=== PATIENT | female | born 1985 | race Caucasian/White ===

== ENCOUNTER 2017-05-31 20:07 | Emergency (ER) | payer BC, OTHER ==
[2017-05-31 20:42] VITALS: BP 118/75; PULSE 75; RESP 16; TEMP 98.1
[2017-05-31] MEDS ORDERED: traMADol 50 MG STARTER PACK 3 TAB BTL PO STA (22:00)
--- NOTE | 2017-05-31 22:00 | ED ---
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 Patient reports that the pain just seemed to start over the past 2 days. She reports that she saw her primary care provider and they told her that she did not need to have it removed. She reports that the pain has became worse over the past 48 hours. She reports it seems also increased in size. She denies any fever or chills, difficulty with urination or bowel movements. She reports that the pain is worse with certain movements. She reports no abdominal pain, nausea vomiting or any other associated symptoms. - Related Data Previous Rx's Medication Instructions Recorded traMADol HCl [Ultram] 50 mg PO Q6H PRN #12 tab 05/31/17 Allergies Allergy/AdvReac Type Severity Reaction Status Date / Time latex Allergy Rash/Hives Verified 05/31/17 20:42 Review of Systems ROS Statement: Those systems with pertinent positive or pertinent negative responses have been documented in the HPI. ROS Other: All systems not noted in ROS Statement are negative. Past Medical History Past Medical History: No Reported History History of Any Multi-Drug Resistant Organisms: None Reported Past Surgical History: Cholecystectomy Past Anesthesia/Blood Transfusion Reactions: No Reported Reaction Past Psychological History: No Psychological Hx Reported Smoking Status: Never smoker Past Alcohol Use History: Occasional Past Drug Use History: None Reported - Past Family History Mother Additional Family Medical History / Comment(s): cervical cancer Father Family Medical History: AFIB General Exam - General Exam Comments Initial Comments: 31-year-old female. No acute distress. Limitations: no limitations General appearance: alert, in no apparent distress Head exam: Present: atraumatic, normocephalic, normal inspection Eye exam: Present: normal appearance, PERRL, EOMI. Absent: scleral icterus, conjunctival injection, periorbital swelling ENT exam: Present: normal exam, mucous membranes moist Neck exam: Present: normal inspection. Absent: tenderness, meningismus, lymphadenopathy Respiratory exam: Present: normal lung sounds bilaterally. Absent: respiratory distress, wheezes, rales, rhonchi, stridor Cardiovascular Exam: Present: regular rate, normal rhythm, normal heart sounds. Absent: systolic murmur, diastolic murmur, rubs, gallop, clicks GI/Abdominal exam: Present: soft, normal bowel sounds. Absent: distended, tenderness, guarding, rebound, rigid Extremities exam: Present: normal inspection, full ROM, normal capillary refill. Absent: tenderness, pedal edema, joint swelling, calf tenderness Back exam: Present: normal inspection, tenderness (Patient does have a for similar by 3 cm area of firmness consistent with a lipoma over her back. She reports it's been similar to this as previously but seems to be somewhat increased over the past 2 days.) Neurological exam: Present: alert, oriented X3, CN II-XII intact Psychiatric exam: Present: normal affect, normal mood Skin exam: Present: warm, dry, intact, normal color. 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 Patient reports that the pain just seemed to start over the past 2 days. She reports that she saw her primary care provider and they told her that she did not need to have it removed. She reports that the pain has became worse over the past 48 hours. She reports it seems also increased in size. She denies any fever or chills, difficulty with urination or bowel movements. Patient be discharged with pain medication and a surgical referral. Discussed applying ice compress over the area. Discussed monitoring for any fever or chills or erythema over the site. Disposition Clinical Impression: Lipoma, Back pain Disposition: HOME SELF-CARE Condition: Good Prescriptions: traMADol HCl [Ultram] 50 mg PO Q6H PRN #12 tab PRN Reason: Pain Referrals: Florentino Rosario MD [Primary Care Provider] - 1-2 days Syl Webster MD [STAFF PHYSICIAN] - 1-2 days Time of Disposition: 21:59
== END 2017-05-31 22:28 | disposition home or self-care (01) ==
LOC: EC 20:07
DX: D17.1 Benign lipomatous neoplasm of skin and subcutaneous tissue of trunk (principal); M54.9 Dorsalgia, unspecified; Z90.49 Acquired absence of other specified parts of digestive tract; Z91.040 Latex allergy status
CPT/HCPCS: 99283

== ENCOUNTER 2021-08-15 09:21 | Emergency (ER) | payer OTHER ==
[2021-08-15 09:37] VITALS: RESP 18; TEMP 98.3
--- NOTE | 2021-08-15 10:33 | ED ---
URI HPI - General Chief Complaint: Upper Respiratory Infection Stated Complaint: Cough Time Seen by Provider: 08/15/21 09:53 Source: patient, RN notes reviewed Mode of arrival: ambulatory Limitations: no limitations - History of Present Illness Initial Comments: Patient is a 36-year-old female that presents to the emergency department complaining of a cough and chest congestion for the past 5 days. She notes that she gets tested for Covid 2 times weekly at her work. She gets test and mother is has not been negative for the last several weeks. Patient notes that she does have is no ALLERGIES and does take ALLERGY medication. She notes that she's been taking TheraFlu for the cough and chest congestion but is only made her tired. She notes that she does have some phlegm/clear mucus come up when she coughs. She denied any other issues or complaints. She was otherwise well-appearing. She denied any chest pain shortness of breath headache nausea vomiting diarrhea constipation fever fatigue chills. - Related Data Home Medications Medication Instructions Recorded Confirmed Cetirizine HCl [Zyrtec] 10 mg PO HS 08/15/21 08/15/21 Allergies Allergy/AdvReac Type Severity Reaction Status Date / Time latex Allergy Rash/Hives Verified 08/15/21 10:59 Review of Systems ROS Statement: Those systems with pertinent positive or pertinent negative responses have been documented in the HPI. ROS Other: All systems not noted in ROS Statement are negative. Past Medical History Additional Past Medical History / Comment(s): allergies History of Any Multi-Drug Resistant Organisms: None Reported Past Surgical History: Cholecystectomy Past Psychological History: No Psychological Hx Reported Smoking Status: Never smoker Past Alcohol Use History: Occasional Past Drug Use History: None Reported General Exam Limitations: no limitations General appearance: alert, in no apparent distress, obese Head exam: Present: atraumatic, normocephalic, normal inspection Eye exam: Present: normal appearance, PERRL, EOMI. Absent: scleral icterus, conjunctival injection, periorbital swelling ENT exam: Present: normal exam, mucous membranes moist Neck exam: Present: normal inspection Respiratory exam: Present: normal lung sounds bilaterally. Absent: respiratory distress, wheezes, rales, rhonchi, stridor Cardiovascular Exam: Present: regular rate, normal rhythm, normal heart sounds. Absent: systolic murmur, diastolic murmur, rubs, gallop, clicks Extremities exam: Present: normal inspection, full ROM, normal capillary refill. Absent: tenderness, pedal edema, joint swelling, calf tenderness Neurological exam: Present: alert, oriented X3 Psychiatric exam: Present: normal affect, normal mood Skin exam: Present: warm, dry, intact, normal color. Absent: rash Course Vital Signs 08/15/21 08/15/21 09:35 11:15 Temperature 98.3 F Pulse Rate 78 Respiratory 18 18 Rate Blood Pressure 113/74 O2 Sat by Pulse 97 Oximetry Medical Decision Making - Medical Decision Making 36-year-old female with a five-day history of cough and chest congestion with minor sputum production. Chest x-ray, Covid test ordered. Chest x-ray negative. Covid test negative. Patient most likely experiencing postnasal drip with upper respiratory tract symptoms involving cough. Case discussed with Dr. Larsen, patient can discharge home. - Lab Data Lab Results 08/15/21 Range/Units 10:20 Coronavirus (PCR) Not Detected (Not Detectd) - Radiology Data Radiology results: report reviewed, image reviewed Chest x-ray: No acute process. Disposition Clinical Impression: Postnasal drip, Pharyngitis, Cough Disposition: HOME SELF-CARE Condition: Stable Instructions (If sedation given, give patient instructions): Postnasal Drip (DC) Additional Instructions: Please return to the Emergency Department if symptoms worsen or any other concerns. Can use Flonase to help postnasal drip symptoms. Continue to use congestions as needed. Hollow up with primary care 1-2 days. Is patient prescribed a controlled substance at d/c from ED?: No Referrals: None,Stated [Primary Care Provider] - 1-2 days Time of Disposition: 11:39
--- NOTE | 2021-08-15 10:52 | XR ---
EXAMINATION TYPE: XR chest 2V DATE OF EXAM: 08/15/2021 COMPARISON: 08/22/2014 TECHNIQUE: PA and lateral views submitted. HISTORY: Cough FINDINGS: The lungs are clear and there is no pneumothorax, pleural effusion, or focal pneumonia. Heart size normal. No overt failure. IMPRESSION: 1. No acute process.
[2021-08-15 11:52] VITALS: BP 125/71; PULSE 68
== END 2021-08-15 11:47 | disposition home or self-care (01) ==
LOC: MERGE 09:21 → EC 09:21
DX: J02.9 Acute pharyngitis, unspecified (principal); R05 Cough; R09.82 Postnasal drip; E66.9 Obesity, unspecified; Z68.32 Body mass index [BMI] 32.0-32.9, adult
CPT/HCPCS: 71046; 87635; 99283

== ENCOUNTER 2021-11-19 12:27 | Emergency (ER) | payer OTHER ==
--- NOTE | 2021-11-19 13:44 | ED ---
URI HPI - General Stated Complaint: covid symptoms Time Seen by Provider: 11/19/21 13:32 Source: patient, RN notes reviewed Mode of arrival: ambulatory Limitations: no limitations - History of Present Illness Initial Comments: This a 36-year-old female presents emergency Department with chief complaint of cough congestion, fevers or chills bodies. Patient states symptoms started last couple days. Patient's family is sick with similar symptoms. Patient's had prior COVID-19 but feels very similar. Patient has a mostly dry cough. Patient does admit that she has some diarrhea, fevers chills bodies. Patient's cough. - Related Data Home Medications Medication Instructions Recorded Confirmed Cetirizine HCl [Zyrtec] 10 mg PO HS 08/15/21 08/15/21 Previous Rx's Medication Instructions Recorded traMADol HCl [Ultram] 50 mg PO Q6H PRN #12 tab 05/31/17 Allergies Allergy/AdvReac Type Severity Reaction Status Date / Time latex Allergy Rash/Hives Verified 11/19/21 13:43 Review of Systems ROS Statement: Those systems with pertinent positive or pertinent negative responses have been documented in the HPI. ROS Other: All systems not noted in ROS Statement are negative. Past Medical History Past Medical History: No Reported History Additional Past Medical History / Comment(s): allergies History of Any Multi-Drug Resistant Organisms: None Reported Past Surgical History: Cholecystectomy Past Anesthesia/Blood Transfusion Reactions: No Reported Reaction Past Psychological History: No Psychological Hx Reported Smoking Status: Never smoker Past Alcohol Use History: Occasional Past Drug Use History: None Reported - Past Family History Mother Additional Family Medical History / Comment(s): cervical cancer Father Family Medical History: AFIB General Exam General appearance: alert, in no apparent distress Head exam: Present: atraumatic, normocephalic, normal inspection Eye exam: Present: normal appearance, PERRL, EOMI. Absent: scleral icterus, conjunctival injection, periorbital swelling ENT exam: Present: normal exam, normal oropharynx, mucous membranes moist Neck exam: Present: normal inspection, full ROM. Absent: tenderness, meningismus, lymphadenopathy Respiratory exam: Present: normal lung sounds bilaterally. Absent: respiratory distress, wheezes, rales, rhonchi, stridor Cardiovascular Exam: Present: regular rate, normal rhythm, normal heart sounds. Absent: systolic murmur, diastolic murmur, rubs, gallop, clicks Course Vital Signs 11/19/21 13:43 Temperature 98.4 F Pulse Rate 93 Respiratory 20 Rate Blood Pressure 115/81 O2 Sat by Pulse 100 Oximetry Medical Decision Making - Medical Decision Making Positive covid 19. Patient discharged in stable condition - Lab Data Lab Results 11/19/21 Range/Units 13:46 Coronavirus (PCR) Detected A (Not Detectd) Disposition Clinical Impression: COVID-19 Disposition: HOME SELF-CARE Condition: Stable Instructions (If sedation given, give patient instructions): Coronavirus Disease 2019 (COVID-19) Additional Instructions: Please return to the Emergency Department if symptoms worsen or any other concerns. Is patient prescribed a controlled substance at d/c from ED?: No Referrals: None,Stated [Primary Care Provider] - 1-2 days Time of Disposition: 15:08
[2021-11-19 15:33] VITALS: BP 121/86; PULSE 88; RESP 18; TEMP 98.7
== END 2021-11-19 15:30 | disposition home or self-care (01) ==
LOC: EC 12:27
DX: U07.1 COVID-19 (principal)
CPT/HCPCS: 87635; 99283

== ENCOUNTER 2022-10-30 05:37 | Emergency (ER) | payer BC, OTHER ==
[2022-10-30 05:46] VITALS: TEMP 97.4
--- NOTE | 2022-10-30 06:10 | ED ---
General Adult HPI - General Source: patient Mode of arrival: ambulatory Limitations: no limitations <Wali Mortensen - Last Filed: 10/30/22 06:05> <Steve Starks - Last Filed: 10/30/22 08:51> - General Chief complaint: Skin/Abscess/Foreign Body Stated complaint: RT breast lump Time Seen by Provider: 10/30/22 05:52 - History of Present Illness Initial comments: This is a 37-year-old female with no past medical history presents emergency department for right breast pain and tenderness. The patient stated that she noted a lump in her breast yesterday and had tenderness over this area and the right breast. The patient denied any trauma to the right breast. The patient stated that she has not had any issues like this in the past and stated that is a larger area in the right breast just behind the areola that was causing her significant pain. The patient stated that she had some mild discomfort and "fee ling sick with body aches and chills of the last several months." The patient denied any other acute pain or complaints at this time. The patient denied any active fevers and chills. (Wali Mortensen) - Related Data Home Medications Medication Instructions Recorded Confirmed Cetirizine HCl [Zyrtec] 10 mg PO HS 08/15/21 08/15/21 Previous Rx's Medication Instructions Recorded traMADol HCl [Ultram] 50 mg PO Q6H PRN #12 tab 05/31/17 clindamycin HCL 300 mg PO Q6H 5 Days #15 cap 10/30/22 Allergies Allergy/AdvReac Type Severity Reaction Status Date / Time latex Allergy Rash/Hives Verified 10/30/22 05:43 Review of Systems ROS Other: All systems not noted in ROS Statement are negative. <Wali Mortensen - Last Filed: 10/30/22 06:05> ROS Other: All systems not noted in ROS Statement are negative. <Steve Starks - Last Filed: 10/30/22 08:51> ROS Statement: Those systems with pertinent positive or pertinent negative responses have been documented in the HPI. Past Medical History Past Medical History: No Reported History Additional Past Medical History / Comment(s): allergies History of Any Multi-Drug Resistant Organisms: None Reported Past Surgical History: Cholecystectomy Past Anesthesia/Blood Transfusion Reactions: No Reported Reaction Past Psychological History: No Psychological Hx Reported Smoking Status: Vaper Past Alcohol Use History: Occasional Past Drug Use History: None Reported - Past Family History Mother Additional Family Medical History / Comment(s): cervical cancer Father Family Medical History: AFIB <Wali Mortensen - Last Filed: 10/30/22 06:05> General Exam Limitations: no limitations General appearance: alert, in no apparent distress Head exam: Present: atraumatic, normocephalic, normal inspection Eye exam: Present: normal appearance, PERRL Pupils: Present: normal accommodation ENT exam: Present: normal exam, normal oropharynx, mucous membranes moist Neck exam: Present: normal inspection, full ROM Respiratory exam: Present: normal lung sounds bilaterally Cardiovascular Exam: Present: regular rate, normal rhythm, normal heart sounds GI/Abdominal exam: Present: soft, normal bowel sounds Extremities exam: Present: normal inspection, full ROM Back exam: Present: normal inspection, full ROM Neurological exam: Present: alert, oriented X3, CN II-XII intact Psychiatric exam: Present: normal affect, normal mood Skin exam: Present: warm, dry, other (Bottom Finisher was present for exam of the breast. Large area of swelling and tenderness to palpation about 3 x 3 cm over the center of the right breast that was mobile however tender with any motion.) <Wali Mortensen - Last Filed: 10/30/22 06:05> Course Vital Signs 10/30/22 05:43 Temperature 97.4 F L Pulse Rate 101 H Respiratory 16 Rate Blood Pressure 118/66 O2 Sat by Pulse 98 Oximetry Medical Decision Making - Lab Data Result diagrams: 10/30/22 06:17 10/30/22 06:17 <Steve Starks - Last Filed: 10/30/22 08:51> - Medical Decision Making Patient care sent out to me by previous shift physician, Dr. Wei Mortensen. Briefly, patient 37-year-old female with clinical presentation consistent with breast abscess. Plan sign out was to follow-up with pending ultrasound. Patient was evaluated bedside. She is well-appearing. She does have a large palpable mass felt in the 7:00 portion of the right breast. Ultrasound was reviewed showing small area of hypoechoic area which may be a small mildly c omplex cyst. Externally clinical presentation does not suggest infection given that there is no overlying erythema making cyst more likely diagnosis. nonetheless patient will be covered for breast abscess. Patient denies . Case discussed with on-call surgeon, Dr. Marte who recommends that patient be started on oral antibiotics discharged with referral to breast specialist. Patient has no medicine ALLERGIES. Patient discharged with referral to Dr. Munson (Steve Starks) - Lab Data Lab Results 10/30/22 10/30/22 Range/Units 06:17 06:17 WBC 12.6 H (3.8-10.6) k/uL RBC 4.33 (3.80-5.40) m/uL Hgb 12.5 (11.4-16.0) gm/dL Hct 38.2 (34.0-46.0) % MCV 88.2 (80.0-100.0) fL MCH 29.0 (25.0-35.0) pg MCHC 32.8 (31.0-37.0) g/dL RDW 12.1 (11.5-15.5) % Plt Count 189 (150-450) k/uL MPV 9.3 Neutrophils % 75 % Lymphocytes % 14 % Monocytes % 6 % Eosinophils % 4 % Basophils % 0 % Neutrophils # 9.4 H (1.3-7.7) k/uL Lymphocytes # 1.8 (1.0-4.8) k/uL Monocytes # 0.8 (0-1.0) k/uL Eosinophils # 0.5 (0-0.7) k/uL Basophils # 0.0 (0-0.2) k/uL Sodium 138 (137-145) mmol/L Potassium 3.7 (3.5-5.1) mmol/L Chloride 109 H (98-107) mmol/L Carbon Dioxide 24 (22-30) mmol/L Anion Gap 5 mmol/L BUN 10 (7-17) mg/dL Creatinine 0.59 (0.52-1.04) mg/dL Est GFR (CKD-EPI)AfAm >90 (>60 ml/min/1.73 sqM) Est GFR (CKD-EPI)NonAf >90 (>60 ml/min/1.73 sqM) Glucose 94 (74-99) mg/dL Calcium 8.3 L (8.4-10.2) mg/dL Magnesium 1.6 (1.6-2.3) mg/dL Total Bilirubin 0.4 (0.2-1.3) mg/dL AST 18 (14-36) U/L ALT 15 (4-34) U/L Alkaline Phosphatase 68 (38-126) U/L Total Protein 6.3 (6.3-8.2) g/dL Albumin 3.6 (3.5-5.0) g/dL Disposition <Wali Mortensen - Last Filed: 10/30/22 06:05> Is patient prescribed a controlled substance at d/c from ED?: No Time of Disposition: 08:50 <Steve Starks - Last Filed: 10/30/22 08:51> Clinical Impression: Breast mass Disposition: HOME SELF-CARE Condition: Fair Instructions (If sedation given, give patient instructions): Breast Mass (ED) Prescriptions: clindamycin HCL 300 mg PO Q6H 5 Days #15 cap Referrals: Sneha Munson MD [STAFF PHYSICIAN] - 1-2 days
[2022-10-30 06:28] LABS: Basophils % (A) 0 %; Eosinophils % (A) 4 %; HCT 38.2 % (34.0-46.0); HGB 12.5 gm/dL (11.4-16.0); Lymphocytes % (A) 14 %; MCHC 32.8 g/dL (31.0-37.0); MCV 88.2 fL (80.0-100.0); Mean Platelet Volume 9.3; Monocytes % (A) 6 %; Neutrophils # (A) 9.4 k/uL (1.3-7.7); Neutrophils % (A) 75 %; Platelet Count 189 k/uL (150-450); RBC 4.33 m/uL (3.80-5.40); RDW 12.1 % (11.5-15.5); WBC 12.6 k/uL (3.8-10.6)
[2022-10-30 06:29] LABS: Eosinophils # (A) 0.5 k/uL (0-0.7); Lymphocytes # (A) 1.8 k/uL (1.0-4.8); Monocytes # (A) 0.8 k/uL (0-1.0)
[2022-10-30 06:45] LABS: ALT 15 U/L (4-34); AST 18 U/L (14-36); African American GFR (CKD) >90 (>60 ml/min/1.73 sqM); Albumin 3.6 g/dL (3.5-5.0); Alkaline Phosphatase 68 U/L (38-126); Anion Gap 5 mmol/L; Blood Urea Nitrogen 10 mg/dL (7-17); Calcium 8.3 mg/dL (8.4-10.2); Carbon Dioxide 24 mmol/L (22-30); Chloride 109 mmol/L (98-107); Glucose 94 mg/dL (74-99); Magnesium 1.6 mg/dL (1.6-2.3); Non-African American GFR(CKD) >90 (>60 ml/min/1.73 sqM); Potassium 3.7 mmol/L (3.5-5.1); Sodium 138 mmol/L (137-145); Total Bilirubin 0.4 mg/dL (0.2-1.3); Total Protein 6.3 g/dL (6.3-8.2)
--- NOTE | 2022-10-30 08:22 | USB ---
Reason for Exam: Clinical finding. Risk Values: Janell 5 year model risk: 0.2%. NCI Lifetime model risk: 6.9%. Technique: Method: Whole Breast Handheld. Findings: The whole breast of the right breast, the axilla of the right breast and the retroareolar of the right breast were scanned. There is a 0.7 x 0.7 x 0.4 cm hypoechoic area with good through-transmission and posterior wall enhancement may be a small mildly complex cyst. Short-term follow-up is recommended. Given the patient's symptoms, baseline screening mammogram performed at this age. Overall Assessment: Incomplete: need additional imaging evaluation, BI-RAD 0 Management: Screening Mammogram of both breasts. A clinical breast exam by your physician is recommended on an annual basis and results should be correlated with mammographic findings. This exam should not preclude additional follow-up of suspicious palpable abnormalities. Results were given to the patient verbally at the time of exam. Electronically signed and approved by: Kee Swartz D.O. Radiologis
[2022-10-30 09:13] VITALS: BP 111/70; PULSE 71; RESP 17
== END 2022-10-30 09:13 | disposition home or self-care (01) ==
LOC: EC 05:37
DX: N63.10 Unspecified lump in the right breast, unspecified quadrant (principal); F17.290 Nicotine dependence, other tobacco product, uncomplicated; Z91.040 Latex allergy status
CPT/HCPCS: 36415; 80053; 83735; 85025; 99283

== ENCOUNTER → 2022-12-02 | Outpatient (CLI) | payer BC ==
--- NOTE | 2022-12-03 20:28 | MM ---
Reason for Exam: Screening (asymptomatic). Baseline mammogram. Patient History: Menarche at age 14. First Full-Term at age 17. Patient has history of breast feeding. Paternal aunt had breast cancer. Last menstrual period: 11/03/2022 Risk Values: Janell 5 year model risk: 0.2%. NCI Lifetime model risk: 7.5%. Prior Study Comparison: Patient's first Mammogram. Tissue Density: The breast tissue is heterogeneously dense. This may lower the sensitivity of mammography. Findings: Analyzed By CAD. No significant mass, suspicious microcalcification, or other discrete abnormality is seen. Areas of asymmetric density do not persist on 3-D images. Overall Assessment: Benign, BI-RAD 2 Management: Screening Mammogram of both breasts at age 42. 1. Patient should continue monthly self breast exams. 2. A clinical breast exam by your physician is recommended on an annual basis. 3. This exam should not preclude additional follow-up of suspicious palpable abnormalities. Electronically signed and approved by: Smiley Hall M.D. Radiologist
== END | disposition home or self-care (01) ==
LOC: RADMAMWWP 13:40
PROVIDERS: ATTEND Surgery
DX: Z12.31 Encounter for screening mammogram for malignant neoplasm of breast (principal); Z80.3 Family history of malignant neoplasm of breast
CPT/HCPCS: 77063; 77067

== ENCOUNTER → 2022-12-06 | Outpatient (CLI) | payer BC ==
[2022-12-06 10:56] VITALS: BP 113/75; PULSE 76; RESP 16; TEMP 98
--- NOTE | 2022-12-06 11:13 | P.GSHP ---
History of Present Illness H&P Date: 12/06/22 Chief Complaint: Right breast pain and tenderness Zoë is a 37-year-old white female seen in consultation regarding right breast pain and tenderness. She was seen in the emergency department at [facility] and [id number]. At that time she had noted a lump in her right breast and had tenderness over that area. There was concern that this represented a cyst versus an abscess she was started on an antibiotic. An ultrasound was performed on the same date which revealed a 0.7 x 0.7 cm hypoechoic area with good through transmission and posterior wall enhancement may be a small mildly complex cyst. The feeling was that this was incomplete assessment and screening mammogram of both breasts was recommended. The pain and tenderness resolved. She did not have any fever or chills. Did have a bilateral mammogram earlier this week. This was done on . This was benign BIRADS 2. At this time she is not complaining of any lumps masses or nodules in either breast. She is not complaining of any nipple discharge or skin changes. Caffeine: pop and monsters coffee all day nicotine: none; stopped 8 months ago, used to smoke 1 PP/week/vapes chocolate: none BCP: as a teen; not now no hormones Family History: Paternal grandmother: Breast cancer Maternal grandmother: Brain cancer, lung cancer Paternal aunt: cancer ? 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 Gallbladder Medical history: Negative Social history: Nicotine: Stopped 8 months ago/ vapes Alcohol: Negative Drugs: none - Constitutional Constitutional: Denies chills, Denies fever - EENT Comment: vertigo since 2012 Eyes: denies blurred vision, denies pain Ears: deny: decreased hearing, tinnitus Ears, nose, mouth and throat: Reports vertigo - Breasts Breasts: bilateral: as per HPI - Cardiovascular Cardiovascular: Denies chest pain, Denies shortness of breath - Respiratory Respiratory: Reports cough - Gastrointestinal Gastrointestinal: Denies abdominal pain, Denies diarrhea, Denies nausea, Denies vomiting - Genitourinary (Female) Genitourinary: Denies dysuria, Denies hematuria - Menstruation Menstruation: Reports period normal - Musculoskeletal Musculoskeletal: Denies myalgias - Integumentary Integumentary: Denies pruritus, Denies rash - Neurological Neurological: Denies numbness, Denies weakness - Psychiatric Psychiatric: Denies anxiety, Denies depression - Endocrine Endocrine: Denies fatigue, Denies weight change - Hematologic/Lymphatic Comment: none - Allergic/Immunologic Allergic/Immunologic: Reports seasonal allergies Past Medical History Past Medical History: No Reported History Additional Past Medical History / Comment(s): allergies History of Any Multi-Drug Resistant Organisms: None Reported Past Surgical History: Cholecystectomy Past Anesthesia/Blood Transfusion Reactions: No Reported Reaction Past Psychological History: No Psychological Hx Reported Smoking Status: Vaper Past Alcohol Use History: Occasional Past Drug Use History: None Reported - Past Family History Mother Additional Family Medical History / Comment(s): cervical cancer Father Family Medical History: AFIB Medications and Allergies Home Medications Medication Instructions Recorded Confirmed Type traMADol HCl [Ultram] 50 mg PO Q6H PRN #12 tab 05/31/17 Rx Cetirizine HCl [Zyrtec] 10 mg PO HS 08/15/21 08/15/21 History clindamycin HCL 300 mg PO Q6H 5 Days #15 cap 10/30/22 Rx Allergies Allergy/AdvReac Type Severity Reaction Status Date / Time latex Allergy Rash/Hives Verified 10/30/22 05:43 Surgical - Exam - General no distress - Eyes normal ocular movement - Neck trachea midline - Respiratory normal respiratory effort, clear to auscultation - Cardiovascular Rhythm: regular Heart Sounds: normal: S1, S2 - Abdomen Abdomen: soft, non tender, no guarding, no rigid, no rebound - Integumentary normal turgor - Musculoskeletal normal gait - Psychiatric oriented to time, oriented to person, oriented to place, memory intact Breast exam: BRA: 38DD Inspection: Bilateral grade 2 ptosis Palpation: Right breast: Multi-positional exam fibrocystic changes no dominant masses or nodules of concern, the area of prior tenderness and fullness has resolved Right axilla: No adenopathy of concern Left breast: Multiple positional exam fibrocystic changes no dominant masses or nodules of concern Left axilla: No adenopathy of concern Results Mammogram and ultrasound results reviewed Assessment and Plan Assessment: Impression: Probable infectious process in October which is subsequently resolved. At this time patient is not complaining of any changes in her breast is not complaining of any lumps pain or discomfort. Physical exam no dominant masses or nodules of concern Recent mammogram no lesions of concern BIRADS 2 Plan: Bilateral mammogram in 1 year with physician exam at that time Patient follow-up immediately any questions or concerns
== END ==
LOC: WWCWWP 10:46
PROVIDERS: ATTEND Surgery
DX: Z85.3 Personal history of malignant neoplasm of breast (principal); Z91.040 Latex allergy status